=== PATIENT | female | born 1995 | race Caucasian/White ===

== ENCOUNTER 2020-09-28 18:49 | Inpatient (IN) | payer OTHER, SELFPAY ==
[~2020-09-28] VITALS: Ht 167.6 cm; Wt 96.6 kg
[~2020-09-28 18:49] MED LIST: PREN-385 PO
[2020-09-28] MEDS ORDERED: OXYTOCIN 20 UNITS in LACTATED RINGERS 1,000 ML IV SCH (18:50)
[2020-09-28] MEDS ORDERED: AMPICILLIN 2,000 MG in NACL 0.9% MINI-BAG PLUS 100 ML IV ONE (18:50)
[2020-09-28] MEDS ORDERED: LACTATED RINGERS 1,000 ML IV SCH (18:50)
[2020-09-28] MEDS ORDERED: METHYLERGONOVINE 0.2 MG/ML AMP IM PRN ×2 (18:50→21:45)
[2020-09-28] MEDS ORDERED: CARBOPROST 250 MCG/ML AMP IM PRN (18:50)
[2020-09-28] MEDS ORDERED: ONDANSETRON 4 MG/2 ML VIAL IVP PRN (19:15)
[2020-09-28] MEDS ORDERED: MORPHINE SULFATE 5 MG/ML VIAL IVP PRN (19:15)
[2020-09-28] MEDS ORDERED: AMPICILLIN 2,000 MG VIAL ONE (19:20)
[2020-09-28 19:32] LABS: BASOPHILS % (AUTO) 0.2 % (0.0-2.0); EOSINOPHILS % (AUTO) 0.6 % (0.0-4.0); HEMATOCRIT 34.7 % (36-48); HEMOGLOBIN 11.7 g/dL (12.0-16.0); LYMPHOCYTES % (AUTO) 12.7 % (20.5-51.1); MEAN CORPUSCULAR HEMOGLOBIN 28 pg (27-31); MEAN CORPUSCULAR HGB CONC 34 g/dL (33-37); MEAN CORPUSCULAR VOLUME 83.5 fL (80-94); MONOCYTES # (AUTO) 0.3 K/uL (0.8-1.0); MONOCYTES % (AUTO) 4.1 % (1.7-9.3); NEUTROPHILS # (AUTO) 6.6 K/uL (1.8-7.7); NEUTROPHILS % (AUTO) 82.4 % (42.2-75.2); PLATELET COUNT (AUTO) 195 K/uL (140-450); RED BLOOD CELL COUNT(AUTO) 4.16 MIL/uL (4.20-5.40); RED CELL DISTRIBUTION WIDTH 15.2 % (11.6-13.7)
[2020-09-28 19:40] VITALS: BP 124/63
[2020-09-28 19:48] LABS: ALBUMIN 2.8 g/dL (3.4-5.0); ANION GAP 15.8 (8-16); CREATININE 0.5 mg/dL (0.6-1.3); POTASSIUM 3.8 mmol/L (3.5-5.1); TOTAL BILIRUBIN 0.5 mg/dL (0.0-1.0)
[2020-09-28] MEDS ORDERED: ROPIVACAINE 0.2%/NS PREMIX 200 ML EPI ONE (19:57)
[2020-09-28] MEDS ORDERED: AMPICILLIN 1,000 MG in NACL 0.9% MINI-BAG PLUS 50 ML IV SCH (20:00)
[2020-09-28] MEDS ORDERED: ROPIVACAINE 0.2%/NS PREMIX 100 ML EPI ONE (20:15)
[2020-09-28 20:50] LABS: APPEARANCE,URINE SL CLOUDY (CLEAR); BILIRUBIN,URINE NEGATIVE (NEGATIVE); BLOOD, URINE 2+ (NEGATIVE); COLOR,URINE YELLOW (YELLOW); LEUKOCYTE ESTERASE ,URINE 1+ (NEGATIVE); NITRITE, URINE NEGATIVE (NEGATIVE); UGLUCOSE NEGATIVE (NEGATIVE)
[2020-09-28] MEDS ORDERED: LIDOCAINE MPF 1% 10 MG/ML VIAL INJ ONE (20:55)
[2020-09-28] MEDS ORDERED: LIDOCAINE 1% 500 MG/50 ML VIAL ONE (20:56)
[2020-09-28] MEDS ORDERED: OXYTOCIN 20 UNITS/LR PREMIX 1,000 ML IV ONE (21:19)
[2020-09-28] MEDS ORDERED: OXYTOCIN 10 UNITS/ML VIAL IM PRN (21:45)
[2020-09-28] MEDS ORDERED: IBUPROFEN 800 MG TAB PO PRN (21:45)
[2020-09-28] MEDS ORDERED: MEASLES, MUMPS, AND RUBELLA 1 VIAL SQVAC PRN (21:45)
[2020-09-28] MEDS ORDERED: BENZOCAINE/MENTHOL 20%-0.5% 60 GM CAN TP PRN (21:45)
[2020-09-28] MEDS ORDERED: SIMETHICONE 80 MG TAB.CHEW PO PRN (21:45)
[2020-09-28] MEDS ORDERED: METHYLERGONOVINE 0.2 MG TAB PO PRN (21:45)
[2020-09-28] MEDS ORDERED: DOCUSATE SODIUM 100 MG GELCAP PO PRN (21:45)
[2020-09-28] MEDS ORDERED: bisacodyL 5 MG TABEC PO PRN (21:45)
[2020-09-28] MEDS ORDERED: IBUPROFEN 600 MG TAB PO PRN (21:45)
--- NOTE | 2020-09-29 09:00 | NUR ---
PATIENT HAS BEEN SCREENED AND CATEGORIZED LOW NUTRITION RISK. PATIENT WILL BE SEEN WITHIN 7 DAYS OF ADMISSION. 10/05/[address]
[2020-09-29 09:13] LABS: HEMOGLOBIN 10.9 g/dL (12.0-16.0)
== END 2020-09-30 13:45 | disposition home or self-care (01) | DRG 560 ==
LOC: MLD 18:49 → MFCC 09-29 01:30
PROVIDERS: ADMIT Obstetrics & Gynecology; ATTEND Obstetrics & Gynecology
PROC: 10E0XZZ Delivery of Products of Conception, External Approach (ICD-10-PCS; principal; 2020-09-28)
DX: O80 Encounter for full-term uncomplicated delivery (principal); Z3A.39 39 weeks gestation of pregnancy; Z37.0 Single live birth; Z20.828 Contact with and (suspected) exposure to other viral communicable diseases; Z83.3 Family history of diabetes mellitus; Z28.21 Immunization not carried out because of patient refusal; R71.0 Precipitous drop in hematocrit
CPT/HCPCS: 36415; 51702; 59409; 80053; 81001; 85018; 85025; 86592; 86886; 86900; 86901; 87086; J0290; J2001; J2590; J2795